=== PATIENT | male | born 1955 | race African-American/Black ===

== ENCOUNTER 2018-09-25 21:59 | Inpatient (IN) ==
[2018-09-25 23:48] LABS: INR 0.94
[2018-09-25 23:49] LABS: PTT 33.7 Seconds (22.3-41.8)
[2018-09-25 23:50] LABS: BASO# 0.05 X1000 (0.0-0.2); BASO% 0.2 % (0.0-0.8); EOS# 0.03 X1000 (0.0-0.7); EOS% 0.1 % (0.0-10.0); HEMATOCRIT 37.7 % (42.0-52.0); HEMOGLOBIN 11.9 g/dL (14.0-18.0); IMM GRAN# 0.05 X1000 (0.0-0.04); IMM GRAN% 0.2 % (0.0-0.5); LYMPH# 8.32 X1000 (1.2-3.4); LYMPH% 41.3 % (20.5-51.1); MCHC 31.6 g/dL (33-37); MCV 88.7 FL (81-99); MONO# 0.71 X1000 (0.11-0.59); MONO% 3.5 % (1.7-9.3); MPV 11.1 FL (7.4-10.4); NEUT# 10.98 X1000 (1.4-6.5); NEUT% 54.7 % (42.2-75.2); PLT 340 X1000 (130-400); RBC 4.25 XMIL (4.7-6.1); RDW 13.3 % (11.5-14.5); WBC 20.14 X1000 (4.8-10.8)
[2018-09-25 23:57] LABS: ALBUMIN 3.6 g/dL (3.5-5.0); CALCIUM 9.3 mg/dL (8.8-10.2); CREATININE 1.9 mg/dL (0.7-1.2); POTASSIUM 4.8 mmol/L (3.5-5.1); TOTAL BILIRUBIN 0.6 mg/dL (0.20-1.00); TOTAL PROTEIN 6.7 g/dL (6.3-8.3)
[2018-09-26] MEDS ORDERED: NS 1,000 ML IV ONE ×2 (00:29→01:41)
--- NOTE | 2018-09-26 00:30 | PROVIDER DOCUMENTATION ---
HPI-General Adult - General Chief Complaint: Return/Recheck Stated Complaint: NECK PAIN Time Seen by Provider: 09/25/18 22:41 Source: patient, family Allergies/Adverse Reactions: Patient Allergies Allergy/AdvReac Type Severity Reaction Status Date / Time No Known Allergies Allergy Verified 09/13/18 19:50 Home Medications: Home Medication List Medication Instructions Recorded Confirmed Last Taken Type ATORVAstatin [Lipitor] 40 mg PO DAILY 09/13/18 09/13/18 Unknown History Metformin [Glucophage] 500 mg PO BID CC 09/13/18 09/13/18 Unknown History Methocarbamol [Robaxin] 500 mg PO BID #20 tab 09/13/18 Unknown Rx - History of Present Illness -Gen Adult Nature of Presenting Problems: CC: "my neck hurts". Patient complains of non-traumatic neck since mid august. Has tried muscle relaxers but has not helped. He has been having generalized weakness for the last two days and is walking much slower. No fevers, headache, n/v, cp, dyspnea, abd pain. Location of Pain/Injury: reports: neck. denies: back Pain Radiation: reports: shoulder(s) Quality of Pain: reports: aching Severity: reports: moderate Onset/Duration: reports: other Timing: reports: still present Context/Activities at Onset: denies: none Modifying Factors: improves with: movement, palpation. worse with: nothing Associated Symptoms: reports: fatigue, weakness, trouble walking. denies: anxiety, chest pain, cough, diaphoresis, diarrhea, dizziness, EENT symptoms, headaches, joint pain, sinus congestion/drainage, nausea, shortness of breath, syncope, vomiting Similar Symptoms Previously?: Yes Recently seen or treated by another doctor?: Yes Review of Systems - Adult - REVIEW OF SYSTEMS - ADULT Constitutional: reports: see serjio CABRERA Eyes: reports: no symptoms reported Ears, Nose, Mouth & Throat: reports: no symptoms reported Cardiovascular: reports: no symptoms reported. denies: chest pain Respiratory: reports: no symptoms reported. denies: cough Gastrointestinal: reports: no symptoms reported Genitourinary: reports: no symptoms reported Musculoskeletal: reports: neck pain. denies: back pain Integumentary: reports: no symptoms reported. denies: rash Neurological: reports: no symptoms reported. denies: numbness, paresthesia Psychiatric: reports: no symptoms reported Endocrine: reports: no symptoms reported Hematologic/Lymphatic: reports: no symptoms reported Allergic/Immunologic: reports: no symptoms reported All Other Systems: Reviewed and Negative Past History - Adult - PAST MEDICAL HISTORY-ADULT Review of Records: reports: Old Records Reviewed, Nursing Assessment Review, Medications Reviewed, Social history reviewed & non-contributory. Major Childhood Illnesses: reports: denies history Cardiovascular: reports: HTN, hyperlipidemia Respiratory: reports: denies history Gastrointestinal: reports: denies history Obstetrical/Gynecological: reports: denies history Genitourinary: reports: denies history Musculoskeletal: reports: denies history Neurological: reports: denies history Endocrine/Immune: reports: Diabetes Other Conditions: reports: denies history - PRIOR SURGERIES/PROCEDURES Surgical/Procedure History: reports: other (foot sx ) - IMMUNIZATION STATUS Childhood Immunizations: See Nurse Assessment Flu Vaccine: See Nurse Assessment - FAMILY HISTORY Family History: reviewed, not pertinent - SOCIAL HISTORY Smoking: denies Substance Use: none/never Alcohol Use Frequency: never Living Situation: family Physical Exam-General - PHYSICAL EXAM-ADULT Initial Vital Signs Reviewed: Yes - CONSTITUTIONAL General Appearance: appears well, alert, no apparent distress - EYES Eyes: pink conjunctivae - HEAD, EARS, NOSE, MOUTH & THROAT HENMT: moist mucous membranes - NECK Neck: supple, other (paraspinal tenderness). negative: lymphadenopathy, meningismus - RESPIRATORY Respiratory: lungs clear, normal breath sounds - CARDIOVASCULAR Cardiovascular: normal peripheral pulses, regular rate, rhythm - GASTROINTESTINAL (ABDOMEN) Abdominal Exam: non tender, soft - LYMPHATIC Lymphatic: no adenopathy - MUSCULOSKELETAL Back Exam: no CVA tenderness Extremity: other (slow to stand, ambulate) Peripheral Pulses: radial (R): 2+, radial (L): 2+ - SKIN Integumentary: normal color, normal turgor, warm/dry - NEUROLOGIC Neurologic: grossly normal, no motor/sensory deficits - PSYCHIATRIC Psych/Mental Status: normal thought content, oriented x 3 Progress - PLAN OF CARE/RESULTS Progress/Plan/Lab Results: Vital Signs - 8 hr 09/25/18 22:06 Temperature 98 F Pulse Rate 108 H Respiratory Rate 18 Blood Pressure 100/48 O2 Sat by Pulse Oximetry 96 Laboratory Results - last 24 hr 09/25/18 09/25/18 09/25/18 23:08 23:08 23:08 WBC 20.14 H RBC 4.25 L Hgb 11.9 L Hct 37.7 L MCV 88.7 MCH 28.0 MCHC 31.6 L RDW Std Deviation 13.3 Plt Count 340 MPV 11.1 H Immature Gran % (Auto) 0.2 Neut % (Auto) 54.7 Lymph % (Auto) 41.3 Desha % (Auto) 3.5 Eos % (Auto) 0.1 Baso % (Auto) 0.2 Immature Gran # (Auto) 0.05 H Neut # (Auto) 10.98 H Lymph # (Auto) 8.32 H Desha # (Auto) 0.71 H Eos # (Auto) 0.03 Baso # (Auto) 0.05 PT 13.0 INR 0.94 PTT (Actin FS) 33.7 Sodium 139 Potassium 4.8 Chloride 99 Carbon Dioxide 24 L Anion Gap 16 BUN 24 H Creatinine 1.9 H Estimated GFR/1.73 m2 36 BUN/Creatinine Ratio 13 Glucose 273 H Calculated Osmolality 291 Calcium 9.3 Total Bilirubin 0.60 AST 9 L ALT 10 Alkaline Phosphatase 91 Creatine Kinase 44 Troponin T Total Protein 6.7 Albumin 3.6 Globulin 3.0 Albumin/Globulin Ratio 1.0 09/25/18 23:08 WBC RBC Hgb Hct MCV MCH MCHC RDW Std Deviation Plt Count MPV Immature Gran % (Auto) Neut % (Auto) Lymph % (Auto) Desha % (Auto) Eos % (Auto) Baso % (Auto) Immature Gran # (Auto) Neut # (Auto) Lymph # (Auto) Desha # (Auto) Eos # (Auto) Baso # (Auto) PT INR PTT (Actin FS) Sodium Potassium Chloride Carbon Dioxide Anion Gap BUN Creatinine Estimated GFR/1.73 m2 BUN/Creatinine Ratio Glucose Calculated Osmolality Calcium Total Bilirubin AST ALT Alkaline Phosphatase Creatine Kinase Troponin T < 0.010 Total Protein Albumin Globulin Albumin/Globulin Ratio Orders Category Date Time Status Saline Loc NOW Care 09/25/18 22:51 Active CHEST-2 VIEWS [RAD] Stat Exams 09/25/18 22:[address] HEAD/C-SPINE W/O CONTRAST [CT] Stat Exams 09/25/18 22:50 Taken CBC WITH ELECTRONIC DIFF [HEME] Stat Lab 09/25/18 23:08 Completed CBC WITH NO DIFF [HEME] Stat Lab 09/26/18 00:29 Ordered CK PROFILE [SP CHEM] Stat Lab 09/25/18 23:08 Completed COMPREHENSIVE METABOLIC PANEL [CHEM] Stat Lab 09/25/18 23:08 Completed PROTIME WITH INR [COAG] Stat Lab 09/25/18 23:08 Completed PTT [COAG] Stat Lab 09/25/18 23:08 Completed TROPONIN T Stat Lab 09/25/18 23:08 Completed UA NIMS W/REFLEX CULT PL [URINALYSIS] Stat Lab 09/25/18 22:50 Uncollected 0.9% Sodium Chloride Inj [Ns] 1,000 ml Med 09/26/18 00:29 Active IV 999 mls/hr CP/SOB/Palp >45 yrs of Age Stat Oth 09/25/18 22:50 Ordered EKG [EKG] Stat Ther 09/25/18 22:51 Ordered Result Diagrams: 09/26/18 01:03 09/25/18 23:08 - REASSESSMENT Reassessment #1 Time Reassessed: 00:30 Status: other (repeat cbc per dr. barnes.) Reassessment #2 Time Reassessed: 01:30 Status: unchanged (patient seen and examined by Dr. Barnes.) - XRAY 1 XRAY Study: Chest Comparison with other Films: no changes (NAF) - CT/MRI 1 CT Study: Cervical Spine, Head Impression: See EMR Report (head: NAF, ?mastoiditis C-spine: likely chronic mild c5 anterior compression fx) - CONSULTS/PCP/HOSPITALIST Notification #1 *Consult/PCP/Hospitalist*: Dr. Quintero, hospitalist Time Discussed: 03:00 Consult Disposition: Admit - CHANGE OF SHIFT REPORT (ED Provider) Report Given and Care Transferred to:: Dr. Barnes Time of Transfer: 02:04 Items Pending: Labs, Physician Consult/Arrival Departure - Departure Date of Disposition Decision: 09/26/18 Time of Disposition Decision: 03:01 DIAGNOSIS: Acute neck pain, Renal insufficiency, Hyperglycemia Leukocytosis Qualifiers: Leukocytosis type: unspecified Qualified Code(s): D72.829 - Elevated white blood cell count, unspecified Disposition: ADMITTED INPATIENT 09 Certified Medical Emergency: Emergent Condition: Fair - Critical Care Note This patient required my direct & personal management of CC.: No Attestation - Physician/ GABBI Attestation Patient care was provided by Advanced Practice Provider:: Yes Advanced Practice Provider:: Mir,Lloyd D Advanced Practice Provider documentation review:: The Mid-level provider documentation, treatment plan and medical decision making was reviewed by the physician who agrees with all treatment and medical decision making by the MLP. The physician spent face to face time with patient:: Yes Advanced Practice Provider documentation review:: Supervising physician onsite and consulted in the evaluation and care of this patient. The physician did have a face to face encounter with the patient.
[2018-09-26 01:19] LABS: HEMATOCRIT 36.4 % (42.0-52.0); HEMOGLOBIN 11.6 g/dL (14.0-18.0); MCH 28.4 PG (27-31); MCHC 31.9 g/dL (33-37); RBC 4.09 XMIL (4.7-6.1); RDW 13.4 % (11.5-14.5); WBC 23.79 X1000 (4.8-10.8)
[2018-09-26] MEDS ORDERED: ZOSYN 3.375 GM in NS 50 ML IV ONE (01:30)
[2018-09-26] MEDS ORDERED: NS 500 ML IV ONE (01:42)
[2018-09-26 02:14] LABS: BILIRUBIN URINE NEGATIVE (NEGATIVE); BLOOD URINE NEGATIVE (NEGATIVE); CLARITY CLEAR (CLEAR); COLOR YELLOW; KETONE URINE 1+(Small) mg/dL (NEGATIVE); LEUKOCYTES URINE NEGATIVE (NEGATIVE); NITRITE URINE NEGATIVE (NEGATIVE); PROTEIN URINE 1+(30 mg/dL) mg/dL (NEGATIVE); UROBILINOGEN URINE NORMAL
[2018-09-26 02:21] LABS: URINE WBC <10 /HPF (<10)
[2018-09-26 02:22] LABS: URINE BACTERIA 4+ /HFP; URINE CRYSTAL CA OXALATE PRESENT /HPF; URINE EPITHELIAL CELLS <10 /HPF (<10); URINE SOURCE CLEAN CATCH
[2018-09-26] MEDS ORDERED: NORCO-5 PO ONE (02:29)
[2018-09-26] MEDS ORDERED: VANCOMYCIN 1 GM/NS 1 GM/250 ML IVPB IV ONE (03:01)
[2018-09-26] MEDS ORDERED: ZOFRAN IV PRN (03:02)
[2018-09-26] MEDS ORDERED: MORPHINE IV PRN (03:02)
[2018-09-26] MEDS ORDERED: PNEUMOVAX 23 IM ONE (05:34)
--- NOTE | 2018-09-26 05:56 | Diag Imaging Result Doc PS360 ---
EXAM: CHEST-2 VIEWS HISTORY: weakness TECHNIQUE: Chest two views COMPARISON: 03/04/2013 FINDINGS: The lungs are well expanded. The heart is not enlarged. The vessels are not distended. There are no infiltrates. No pleural effusions. Mild scoliosis. IMPRESSION: No acute abnormality. Electronically signed by Grady Richey 09/26/2018 5:54 AM
--- NOTE | 2018-09-26 08:39 | Diag Imaging Result Doc PS360 ---
EXAM: CT HEAD/C-SPINE W/O CONTRAST HISTORY: headache, neck pain, unable to ambulate TECHNIQUE: Routine noncontrasted CT scan of the brain and cervical spine as per standard protocol. Dose reduction technique. COMPARISON: None. FINDINGS: Preliminary interpretation was given by [facility] teleradiology. Head: There are no extra-axial collections. There is no evidence for acute hemorrhage. There is no midline shift or mass effect. There is no hydrocephalus. There is diffuse cerebral atrophy. There is patchy hypodensity throughout the deep white matter which is nonspecific in appearance but likely related to microvascular disease. There is a probable old right lacunar infarct. The calvarium is intact. Cervical Spine: There is no prevertebral soft tissue swelling. There is multilevel degenerative disc disease with osteophyte formation and neural foraminal encroachment most marked at C3-C7. There is mild anterior compression of C5 of undetermined age. No canal stenosis. No free or retropulsed fragments. No subluxation. IMPRESSION: Atrophy and microvascular disease. Mild anterior compression fracture C5 of undetermined age. Multilevel cervical spondylosis. This exam was performed using automated exposure control, adjustment of mA or kV according to patient size, and/or use of iterative reconstruction technique. Electronically signed by Jenny Velazco 09/26/2018 8:37 AM
[2018-09-26] MEDS ORDERED: VANCOMYCIN IV PER PHARMACY MISC SCH (17:15)
[2018-09-26] MEDS ORDERED: VANCOMYCIN 1,600 MG in NS 250 ML IV SCH ×4 (18:00)
[2018-09-26] MEDS: ZOSYN 3.375 GM in NS 50 ML IV SCH ×2 (18:05→23:35)
[2018-09-26] MEDS ORDERED: NS 1,000 ML IV SCH (20:00)
[2018-09-26] MEDS: PRAVACHOL PO SCH (20:38)
--- NOTE | 2018-09-26 21:14 | HISTORY AND PHYSICAL ---
CHIEF COMPLAINT: Neck pain. HISTORY OF PRESENT ILLNESS: This is a 63-year-old gentleman who presented to the emergency room complaining of neck pain since mid August. He describes this as an achy type pain that goes down the back of his head, to his neck and into his bilateral shoulders. He states it increases with movement, palpation. Rest does help. He has also noted a headache along with some fatigue and weakness over the past 1 to 2 weeks. He denied any syncope or dizziness, any chest pain, palpitations. PAST MEDICAL HISTORY: Diabetes mellitus, hypertension, hyperlipidemia. PAST SURGICAL HISTORY: Foot surgery. SOCIAL HISTORY: He denies alcohol, tobacco or illicit drug use. ALLERGIES: No known drug allergies. HOME MEDICATIONS: A list will be obtained by the nursing staff and once verified, they will be reviewed and started as appropriate. REVIEW OF SYSTEMS: Discussed with patient with pertinent positives stated in the HPI. He denied any syncope, dizziness, any change in vision, any fevers, chills, recent weight loss or weight gain, any shortness of breath, cough, PND, orthopnea, any difficulty swallowing , any numbness or tingling to his extremities, any nausea, vomiting, diarrhea, constipation, black or bloody vomitus or stool, hematuria, dysuria, frequency, urgency. PHYSICAL EXAMINATION: GENERAL: This is a 63-year-old gentleman who is lying in bed in no distress. VITAL SIGNS: Blood pressure is 138/64, with heart rate of 88, respirations 20, temperature 98.3, room air sats 96-98%. EYES: Pupils are equal, round, react to light. EOMs are intact. Sclerae are anicteric. HEENT: Head is normocephalic, atraumatic. Mucous membranes are moist. NECK: Supple, with trachea midline. He does have some tenderness to his bilateral shoulders. NEUROLOGIC: He is alert and oriented x 3 with cranial nerves 2-12 grossly intact. He has muscle strength is 5/5 x 4 extremities. SKIN: Warm and dry. No rashes or lesions noted. LABS: WBC is 20.1, with hemoglobin 11.9, hematocrit 37.7 and platelets of 340, 000. Sodium is 139, potassium 4.8, BUN 24, creatinine 1.9 with a glucose of 273. Blood cultures and urine cultures are pending. ASSESSMENT AND PLAN: 1. Neck pain. CT of the head and C-spine without contrast revealed right mastoid effusion with no fracture appreciated, atrophy and microvascular disease. A mild anterior compression fracture C5 of undetermined age, with multiple cervical spondylosis. We will continue with pain medications as the patient has had muscle relaxers with no relief. We will not reorder these. 2. Leukocytosis. The patient is noted to have an ulcerated area to his right heel. Wound culture has been obtained. In reviewing his past records, he was followed by Dr. Lewis in the [facility]ound [facility] intermittently from 2012 to it looks like 2016 for this ulcer of the right heel. At that time back in 2012 he had a positive culture strep group B. There is no record of osteomyelitis. We will start antibiotic coverage of vancomycin and Zosyn. We will x-ray his right foot and will consult the Wound Care. 3. Acute kidney injury. We will hold any renal toxic medications and renal dose his medications. Give IV hydration and re-draw labs in the morning. 4. Diabetes mellitus. He will be placed on pattern blood glucose with sliding scale insulin. 5. Hypertension. We will identify his home medications and continue these as appropriate. 6. Repeat a CBC, CMP, magnesium in the morning. 7. Further treatments pending hospital course. Dictated by SHANI Burris for Royce Stubbs MD This chart was documented by, SHANI Burris and accurately reflects the services performed, treatment plan and medical decisions as attested by the providers signature Royce Stubbs MD. cc: SHANI Burris MD [facility]
--- NOTE | 2018-09-26 21:15 | Diag Imaging Result Doc PS360 ---
FOOT COMPLETE RIGHT - 09/26/2018 INDICATION: persistent diabetic ulcer, pain on ambulation TECHNIQUE: Three views COMPARISON: 03/06/2016 FINDINGS: There is severe pes planus. Since prior, there has been erosion of the subtalar joints by compression from the talus. No acute fracture. There is severe degeneration throughout the mid tarsal joints. No bony erosions or soft tissue gas. There is some degeneration at the tibiotalar joint. IMPRESSION: Chronic progressive degenerative changes. Electronically signed by Jagjit Nava 09/26/2018 9:13 PM
--- NOTE | 2018-09-27 04:00 | HISTORY AND PHYSICAL ---
ADDENDUM: Patient seen and examined by myself. Full note dictated and discussed with nurse practitioner. Patient presented to the hospital, initially complaining that his neck was hurting. States that he fell in August, was seen in the ER. X-ray does show a compression fracture. The patient was noted to have a white count of 23,000. We will admit him to the hospital, place on antibiotics, attempt to determine the reason for his elevated white count. cc: Royce Stubbs MD
[2018-09-27] MEDS: MORPHINE IV PRN (04:11)
[2018-09-27] MEDS: ZOSYN 3.375 GM in NS 50 ML IV SCH ×5 (04:11→23:21)
[2018-09-27 07:20] LABS: HEMATOCRIT 32.5 % (42.0-52.0); MCH 27.5 PG (27-31); MCHC 30.8 g/dL (33-37); MCV 89.3 FL (81-99); MPV 10.8 FL (7.4-10.4); RBC 3.64 XMIL (4.7-6.1); RDW 13.3 % (11.5-14.5); WBC 19.4 X1000 (4.8-10.8)
[2018-09-27 07:43] LABS: AGAP 11; ALBUMIN 3.1 g/dL (3.5-5.0); ALKALINE PHOSPHATASE 76 U/L (32-122); BUN 11 mg/dL (8-22); CALCIUM 8.6 mg/dL (8.8-10.2); CHLORIDE 105 mmol/L (98-107); COSMO 282; CREATININE 1.1 mg/dL (0.7-1.2); ESTIMATED GFR > 60; GLUCOSE 131 mg/dL (70-104); GOT 10 U/L (10-34); GPT 7 U/L (10-44); MAGNESIUM 1.6 mg/dL (1.5-2.7); POTASSIUM 3.8 mmol/L (3.5-5.1); SODIUM 141 mmol/L (136-145); TCO2 25 mmol/L (25-35); TOTAL PROTEIN 6.5 g/dL (6.3-8.3)
[2018-09-27] MEDS ORDERED: DILTIAZEM HCL 300 MG PO SCH (09:00)
[2018-09-27] MEDS: IMDUR PO SCH (09:12)
[2018-09-27] MEDS: GLUCOPHAGE PO SCH ×2 (09:13→17:10)
[2018-09-27] MEDS: CARDIZEM CD PO SCH ×2 (09:13)
[2018-09-27] MEDS: APRESOLINE PO SCH ×3 (09:13→21:28)
[2018-09-27] MEDS: COZAAR PO SCH (09:13)
[2018-09-27] MEDS ORDERED: VANCOMYCIN 1,600 MG in NS 250 ML IV SCH (18:00)
[2018-09-27] MEDS: PRAVACHOL PO SCH (21:28)
[2018-09-27] MEDS: ROBAXIN PO PRN (21:28)
--- NOTE | 2018-09-28 03:08 | PROGRESS NOTE ---
DATE: 09/27/2018 SUBJECTIVE: The patient has no new complaints. It is very difficult to stay on focus and to get him to answer questions. OBJECTIVE: Vital Signs: Temperature 97.6 degrees, pulse 96, respiratory rate 20, BP 177/84. General: The patient is awake, alert, currently in no respiratory distress, lying in the bed. HEENT: Normocephalic and atraumatic. Neck: Supple. CARDIOVASCULAR: Regular rate. Chest: Clear. Abdomen: Soft. Extremities: Moves all extremities. ASSESSMENT: 1. Neck pain. 2. Leukocytosis. 3. Cellulitis foot, gram-negative rods growing culture. 4. Diabetes. 5. Hypertension. PLAN: The patient's leukocytosis is improving slightly. His creatinine has improved to 1.1. Anemia is stable. We will continue vancomycin and Zosyn until final culture and sensitivity. cc: Royce Stubbs MD
[2018-09-28] MEDS: ZOSYN 3.375 GM in NS 50 ML IV SCH (04:53)
[2018-09-28 07:19] LABS: HEMATOCRIT 29.9 % (42.0-52.0); MCHC 30.1 g/dL (33-37); MCV 89.8 FL (81-99); MPV 10.8 FL (7.4-10.4); RBC 3.33 XMIL (4.7-6.1); RDW 13.3 % (11.5-14.5); WBC 19.22 X1000 (4.8-10.8)
[2018-09-28 07:45] LABS: AGAP 13; ALKALINE PHOSPHATASE 70 U/L (32-122); BUN 12 mg/dL (8-22); CALCIUM 8.8 mg/dL (8.8-10.2); CHLORIDE 108 mmol/L (98-107); COSMO 295; CREATININE 1.2 mg/dL (0.7-1.2); ESTIMATED GFR > 60; GLUCOSE 189 mg/dL (70-104); GOT 8 U/L (10-34); GPT 8 U/L (10-44); MAGNESIUM 1.6 mg/dL (1.5-2.7); POTASSIUM 4.2 mmol/L (3.5-5.1); SODIUM 146 mmol/L (136-145); TCO2 25 mmol/L (25-35); TOTAL PROTEIN 5.7 g/dL (6.3-8.3)
[2018-09-28] MEDS: GLUCOPHAGE PO SCH ×2 (08:22→17:11)
[2018-09-28] MEDS: COZAAR PO SCH (08:22)
[2018-09-28] MEDS: IMDUR PO SCH (08:22)
[2018-09-28] MEDS: CARDIZEM CD PO SCH ×2 (08:23)
[2018-09-28] MEDS: APRESOLINE PO SCH ×3 (08:23→21:34)
[2018-09-28] MEDS ORDERED: MILK OF MAGNESIA PO PRN (08:33)
[2018-09-28] MEDS: LEVAQUIN PO SCH (12:22)
[2018-09-28] MEDS: PRAVACHOL PO SCH (21:34)
[2018-09-28] MEDS: MORPHINE IV PRN (21:34)
--- NOTE | 2018-09-28 23:18 | PROGRESS NOTE ---
DATE: 09/28/2018 SUBJECTIVE: Patient has no new complaints. States that he is feeling okay. His neck pain is improving. States that overall he is feeling better, but still having pain in his left lower extremity. PHYSICAL EXAMINATION: Vital Signs: Temperature 99 degrees with a T-max of 100 degrees, pulse 97, respiratory 18, BP 130/83. General: Patient is awake, alert, currently in no respiratory distress. He is lying in the bed. HEENT: Normocephalic. Neck: Supple. CARDIOVASCULAR: Regular rate. Chest: Clear. Abdomen: Soft. Extremities: Moves all extremities. Neurologic: No focal changes. ASSESSMENT: 1. Neck pain with a healing old fracture. 2. Leukocytosis. 3. Acute kidney injury, resolved. 4. Right foot injury, currently growing gram-negative rods. PLAN: We will continue patient in the hospital. Continue antibiotics until his wound culture has fully resulted and then we will adjust antibiotics. Hopefully can discharge home tomorrow. cc: Royce Stubbs MD
[2018-09-29] MEDS: GLUCOPHAGE PO SCH ×2 (07:57→18:29)
[2018-09-29] MEDS: CARDIZEM CD PO SCH ×4 (07:58→08:05)
[2018-09-29] MEDS: IMDUR PO SCH ×2 (07:58→08:05)
[2018-09-29] MEDS: APRESOLINE PO SCH ×4 (07:58→20:40)
[2018-09-29] MEDS: LEVAQUIN PO SCH ×2 (07:58→08:05)
[2018-09-29] MEDS: COZAAR PO SCH ×2 (07:58→08:05)
[2018-09-29] MEDS: ROBAXIN PO PRN (20:40)
[2018-09-29] MEDS: PRAVACHOL PO SCH (20:40)
--- NOTE | 2018-09-30 03:46 | PROGRESS NOTE ---
DATE: 09/29/2018 SUBJECTIVE: Patient overall notes that he is feeling better. He is having less cough, congestion, less shortness of breath. Denies any fevers or chills. PHYSICAL EXAMINATION: Vital Signs: Temperature 98.6 degrees, pulse 107, respiratory 20, BP 120/59. General: Patient is an obese male who is currently in no respiratory distress. ASSESSMENT: 1. Neck pain, improved. 2. Leukocytosis, improved. 3. Citrobacter cellulitis in his wound. PLAN: We will continue patient in the hospital tonight. Continue to follow. Hopefully home over the next 1 or 2 days. cc: Royce Stubbs MD
[2018-09-30 08:02] VITALS: BP 156/72
[2018-09-30] MEDS: COZAAR PO SCH (08:07)
[2018-09-30] MEDS: IMDUR PO SCH (08:07)
[2018-09-30] MEDS: CARDIZEM CD PO SCH ×2 (08:07→08:08)
[2018-09-30] MEDS: GLUCOPHAGE PO SCH (08:07)
[2018-09-30] MEDS: APRESOLINE PO SCH (08:08)
[2018-09-30] MEDS: LEVAQUIN PO SCH (08:09)
--- NOTE | 2018-09-30 15:17 | DISCHARGE SUMMARY ---
ADMISSION DATE: 09/26/2018 DISCHARGE DATE: 09/30/2018 DIAGNOSES: 1. Neck pain, improved, although this is chronic. 2. Acute kidney injury, resolved. 3. Diabetes mellitus. 4. Hypertension. DIAGNOSTICS: 1. Chest x-ray revealed lungs are well expanded. Heart is not enlarged. Vessels are not distended. There are no infiltrates. No pleural effusions. Mild scoliosis with no acute abnormality. 2. CT of the head and C-spine without contrast. The C-spine reveals no prevertebral soft tissue swelling. There is multilevel degenerative disk disease with osteophyte formation and neuroforaminal encroachment most marked at C3-C7. There is mild anterior compression of C5 of undetermined age. No canal stenosis. No free or retropulsed fragments. No subluxation. Head revealed no extra-axial collections. There is no evidence for acute hemorrhage. There is no midline shift or mass effect. There is no hydrocephalus. There is diffuse cerebral atrophy. There is patchy hypodensity throughout the deep white matter which is nonspecific in appearance but likely related to microvascular disease. There is a probable old right lacunar infarct. 3. X-ray right foot reveals chronic progressive degenerative changes. 4. Microbiology. Blood cultures x2 revealed no growth after 48 hours. 5. Urine culture revealed no growth. 6. Right foot wound culture revealed Citrobacter Koseri. HOSPITAL COURSE: Mr. Garcia presents to the emergency room complaining of neck pain that he has been present since mid August. He denied any injury. He did state that he has had chronic neck pain for many years, although this did wax and wane. It had just been more persistent since August. He did state that this pain increased with movement or palpation, rest helps. A CT of the head was negative. Mr. Garcia stated that his pain started after a fall in mid August. He did present to the emergency room on the 13 of September with neck pain. He was diagnosed with cervicalgia and given prescription for muscle relaxer. Of note, Mr. Garcia complains of the pain in the paraspinous muscles and palpation of these muscles did reproduce this pain. He was found to have a right foot ulceration that was draining some purulent drainage. Culture revealed Citrobacter koseri that was Levaquin sensitive. He was evaluated by Wound Care with recommendation for dressing changes. At 1st admission the patient stated that this was new, but in reviewing his chart he was seen in February, for a right heel ulcer and had been in the wound clinic from it looks like February to July,. We did discuss with the patient being seen and being evaluated by our wound clinic, which he denied. We did discuss this with the patient and recommended that he follow up with our wound clinic on discharge to which he refused. He did agree to home health and home wound care which was arranged by social Work. He received Robaxin on the night of the and the night of the , and he did state that this helped his neck pain. He requested no other medications. DISCHARGE PHYSICAL EXAMINATION: Cardiovascular: Regular rate and rhythm. S1 and S2 appreciated. Pulmonary: Breath sounds are clear with no increased work of breathing noted. Gastrointestinal: Abdomen is soft, nontender, nondistended with bowel sounds in all 4 quadrants. Skin: Is warm and dry. He does have a dressing intact to his right heel. DISCHARGE MEDICATIONS: 1. Pravachol 40 mg p.o. at bedtime. 2. Cardizem-LA 300 mg p.o. daily. 3. Lasix 40 mg p.o. daily. 4. Glimepiride 4 mg p.o. daily. 5. Apresoline 25 mg p.o. t.i.d. 6. Isosorbide mononitrate ER 30 mg p.o. daily. 7. Cozaar 100 mg p.o. daily. 8. Metformin 1000 mg p.o. b.i.d. 9. Robaxin 500 mg p.o. b.i.d. 10. Klor-Con 10 ,10 mEq daily. 11. Levaquin 500 mg p.o. daily for 5 days. FOLLOW-UP: 1. The patient will receive home health as well as home wound care from [facility]. 2. He needs to schedule a follow-up appointment with his PCP Dr. Yossi Pablo. He has been encouraged to call Wednesday to schedule this. 3. He has been instructed to call or return to the ER for any syncope, dizziness, chest pain, palpitations, shortness of breath, cough, temperature greater than 101, any chills, any black or bloody vomitus or stools, or for any questions or concerns that he may have. He is being discharged home in stable condition with family members. TIME SPENT: This is a greater than 30 minute discharge. Dictated by Samantha J. Slaten, [employer] for Royce Stubbs MD This chart was documented by, SHANI Burris and accurately reflects the services performed, treatment plan and medical decisions as attested by the providers signature Royce Stubbs MD. cc: SHANI Burris MD
--- NOTE | 2018-10-01 06:57 | DISCHARGE SUMMARY ---
ADMISSION DATE: 09/26/2018 DISCHARGE DATE: 09/30/2018 ADDENDUM: Patient seen and examined. Currently is awake, alert. He is in no distress. He feels better. PLAN: We will discharge him home. We will continue home health. Please see full note. cc: Royce Stubbs MD
== END 2018-09-30 12:50 | disposition home health service (06) | DRG 603 ==
LOC: P.MEDSURG 21:59 → P.ED 21:59 → SUATTDRO 09-26 03:14 → OBSVTOIN 09-26 03:14
PROVIDERS: ATTEND Family Medicine
CPT/HCPCS: 70450; 71020; 71046; 72125; 73630; 80053; 81001; 82550; 82948; 83605; 83735; 84484; 85025; 85027; 85610; 85730; 87040; 87070; 87077; 87088; 87186; 93005; 94761; 96361; 96365; 96375; 99285; A9270; J2270; J2543; J3370; J7030; J7050; XXXXX

== ENCOUNTER 2019-04-28 01:18 | Inpatient (IN) ==
[2019-04-28 02:12] LABS: ALB/GLOB RATIO 1.6; ALBUMIN 4.6 g/dL (3.5-5.0); CALCIUM 10.2 mg/dL (8.8-10.2); CREATININE 2.5 mg/dL (0.7-1.2); POTASSIUM 4.8 mmol/L (3.5-5.1); TOTAL BILIRUBIN 0.79 mg/dL (0.20-1.00); TOTAL PROTEIN 7.5 g/dL (6.3-8.3)
[2019-04-28 02:37] LABS: BASO# 0.11 X1000 (0.0-0.2); BASO% 0.3 % (0.0-0.8); EOS# 0.05 X1000 (0.0-0.7); EOS% 0.1 % (0.0-10.0); HEMATOCRIT 33.4 % (42.0-52.0); HEMOGLOBIN 10.8 g/dL (14.0-18.0); MCH 28.2 PG (27-31); MCHC 32.3 g/dL (33-37); MCV 87.2 FL (81-99); PLT 258 X1000 (130-400); RBC 3.83 XMIL (4.7-6.1); RDW 13.1 % (11.5-14.5); WBC 37.08 X1000 (4.8-10.8)
--- NOTE | 2019-04-28 02:42 | EKG Report ---
Test Performed on : 04/28/2019 01:58:51 AM Test Reason : vomiting Blood Pressure : / mmHG Vent. Rate : 088 BPM Atrial Rate : 088 BPM P-R Int : 160 ms QRS Dur : 094 ms QT Int : 396 ms P-R-T Axes : 079 054 084 degrees QTc Int : 479 ms Sinus rhythm. with frequent and consecutive premature ventricular complexes. Possible Left atrial enlargement Septal infarct , age undetermined Abnormal ECG No previous ECGs available Unconfirmed Result
[2019-04-28 03:13] LABS: URINE SOURCE CLEAN CATCH
[2019-04-28 03:17] LABS: BILIRUBIN URINE NEGATIVE (NEGATIVE); BLOOD URINE NEGATIVE (NEGATIVE); COLOR YELLOW; GLUCOSE URINE 70 mg/dL (NEGATIVE); KETONE URINE NEGATIVE (NEGATIVE); LEUKOCYTES URINE NEGATIVE (NEGATIVE); NITRITE URINE NEGATIVE (NEGATIVE); PROTEIN URINE NEGATIVE (NEGATIVE); SP GRAVITY URINE 1.012; TURBIDITY URINE CLEAR (CLEAR); UROBILINOGEN URINE NORMAL (NORMAL)
[2019-04-28 03:18] LABS: UR EPITHELIAL CELLS <10 /HPF (<10); URINE BACTERIA NEGATIVE /HPF; URINE RBC <10 /HPF (<10); URINE WBC <10 /HPF (<10)
[2019-04-28 03:31] LABS: LYMPHS 63 % (21-51); MONO 7 % (1-9); SEGS 30 % (42-75)
--- NOTE | 2019-04-28 03:36 | PROVIDER DOCUMENTATION ---
This chart was entered by Manuela Kasper Scribe, acting as scribe for Tlaon Velasquez MD. HPI-General Adult - General Chief Complaint: Low Blood Sugar Stated Complaint: Poss. Stroke Time Seen by Provider: 04/28/19 01:20 Source: patient Allergies/Adverse Reactions: Patient Allergies Allergy/AdvReac Type Severity Reaction Status Date / Time No Known Allergies Allergy Verified 09/13/18 19:50 Home Medications: Home Medication List Medication Instructions Recorded Confirmed Last Taken Type Metformin [Glucophage] 1,000 mg PO BID CC 09/13/18 09/26/18 Unknown History Diltiazem HCl [Cardizem LA] 300 mg PO DAILY 09/26/18 09/26/18 Unknown History Furosemide [Lasix] 40 mg PO DAILY 09/26/18 09/26/18 Unknown History Glimepiride 4 mg PO DAILY 09/26/18 09/26/18 Unknown History Hydralazine [Apresoline] 25 mg PO TID 09/26/18 09/26/18 Unknown History Isosorbide Mononitrate E.r. [Imdur] 30 mg PO DAILY 09/26/18 09/26/18 Unknown History Losartan [Cozaar] 100 mg PO DAILY 09/26/18 09/26/18 Unknown History Methocarbamol [Robaxin] 500 mg PO BID PRN 09/26/18 09/26/18 Unknown History PRAVAstatin [Pravachol] 40 mg PO QHS 09/26/18 09/26/18 Unknown History Potassium Chloride [Klor-Con 10] 10 meq PO DAILY 09/26/18 09/26/18 Unknown Hist ory Levofloxacin [Levaquin] 500 mg PO DAILY #5 tab 09/30/18 Unknown Rx - History of Present Illness -Gen Adult Nature of Presenting Problems: 64 yom arrives via ems for rt sided weakness, rt sided facial droop and fsbs of 35. pt fsbs got up to 38 and when checked again dropped to 34. pt has hx of cva and dm. pt is on anticoagulants. pt has cast on rt foot. pt sts numb rt arm and has never happened before. pt fsbs in er is 34, given D-50 upon arrival, pt became more repsonsive immediately. Location of Pain/Injury: reports: face (rt facial droop), upper extremity (rt arm numbness) Pain Radiation: reports: no radiation Severity: reports: mild Onset/Duration: reports: just prior to arrival Timing: reports: still present - Diabetes Related Context Context: reports: low blood sugar Review of Systems - Adult - REVIEW OF SYSTEMS - ADULT Constitutional: reports: no symptoms reported Eyes: reports: no symptoms reported Ears, Nose, Mouth & Throat: reports: no symptoms reported Cardiovascular: reports: no symptoms reported Respiratory: reports: no symptoms reported Gastrointestinal: reports: no symptoms reported Genitourinary: reports: no symptoms reported Musculoskeletal: reports: no symptoms reported Integumentary: reports: no symptoms reported Neurological: reports: see HPI, numbness (rt arm), other (rt sided facial droop) . denies: loss of balance, syncope, tremors Psychiatric: reports: no symptoms reported Endocrine: reports: see HPI, other (low fsbs). denies: change in skin pigment, excessive sweating, goiter, increased thirst, polyuria Hematologic/Lymphatic: reports: no symptoms reported Allergic/Immunologic: reports: no symptoms reported All Other Systems: Reviewed and Negative Past History - Adult - PAST MEDICAL HISTORY-ADULT Review of Records: reports: Old Records Reviewed, Nursing Assessment Review, Medications Reviewed, Social history reviewed & non-contributory. Major Childhood Illnesses: reports: denies history Cardiovascular: reports: HTN, hyperlipidemia Respiratory: reports: denies history Gastrointestinal: reports: denies history Obstetrical/Gynecological: reports: denies history Genitourinary: reports: denies history Musculoskeletal: reports: denies history Neurological: reports: denies history Endocrine/Immune: reports: Diabetes Other Conditions: reports: denies history - PRIOR SURGERIES/PROCEDURES Surgical/Procedure History: reports: other (foot sx ) - IMMUNIZATION STATUS Childhood Immunizations: See Nurse Assessment Flu Vaccine: See Nurse Assessment - FAMILY HISTORY Family History: reviewed, not pertinent - SOCIAL HISTORY Smoking: non-smoker Substance Use: none/never Physical Exam-General - PHYSICAL EXAM-ADULT Initial Vital Signs Reviewed: Yes - CONSTITUTIONAL General Appearance: alert, mild distress, slow to respond (prior to D-50). negative: obtunded, combative - EYES Eyes: PERRL/EOMI, pink conjunctivae - HEAD, EARS, NOSE, MOUTH & THROAT HENMT: normocephalic/atraumatic, moist mucous membranes, normal ENT inspection - NECK Neck: non-tender, full range of motion, supple, normal inspection - RESPIRATORY Respiratory: chest non-tender, lungs clear, normal breath sounds - CARDIOVASCULAR Cardiovascular: normal peripheral pulses, regular rate, rhythm - GASTROINTESTINAL (ABDOMEN) Abdominal Exam: normal bowel sounds, non tender, soft, other (pt has excess skin on abd). negative: guarding, rigid, rebound, tenderness - LYMPHATIC Lymphatic: no adenopathy - MUSCULOSKELETAL Back Exam: normal inspection, no CVA tenderness, no vertebral tenderness Extremity: normal range of motion, non-tender, normal inspection, other (sensory, motor intact bilat UE and LE after D-50. pt has boot on). negative: deformity, erythema, inflammation Peripheral Pulses: radial (R): 2+, radial (L): 2+ - SKIN Integumentary: normal color, normal turgor, warm/dry - NEUROLOGIC Neurologic: engraver automatic II-XII nml as tested, grossly normal, no motor/sensory deficits, facial droop (minimal rt sided, resolved after D-50), other (sensory, motor intact bilat UE and LE after D-50.). negative: aphasia, EOM palsy, focal weakne ss - PSYCHIATRIC Psych/Mental Status: normal mood/affect, normal thought content, normal thought process, oriented x 3 Progress - PLAN OF CARE/RESULTS Progress/Plan/Lab Results: Vital Signs - 8 hr 04/28/19 01:31 Temperature 98.4 F Pulse Rate 87 Respiratory Rate 16 Blood Pressure 130/69 O2 Sat by Pulse Oximetry 100 Laboratory Results - last 24 hr 04/28/19 01:23 POC Glucose 30 L D Orders Category Date Time Status Nursing- Obtain EKG ONCE Care 04/28/19 01:[address] HEAD W/O CONTRAST [CT] Stat Exams 04/28/19 01:36 Ordered cxr [CHEST-1 VIEW] [RAD] Stat Exams 04/28/19 01:37 Ordered CBC WITH ELECTRONIC DIFF [HEME] Stat Lab 04/28/19 01:38 Ordered COMPREHENSIVE METABOLIC PANEL [CHEM] Stat Lab 04/28/19 01:38 Ordered TROPONIN T Stat Lab 04/28/19 01:38 Ordered URINALYSIS W/POSS RFLX CULT [URINALYSIS] Stat Lab 04/28/19 01:34 Uncollected EKG [EKG] Stat Ther 04/28/19 01:34 Ordered Result Diagrams: 04/28/19 01:24 04/28/19 01:24 - CT/MRI 1 CT Study: Head Impression: Normal, See EMR Report (No Acute findings. Persistent mastoiditis Rt side.) - CONSULTS/PCP/HOSPITALIST Notification #1 *Consult/PCP/Hospitalist*: Dr Wade Time Discussed: 03:35 Consult Disposition: Will see in ED, Admit Departure - Departure Date of Disposition Decision: 04/28/19 Time of Disposition Decision: 03:35 DIAGNOSIS: Leukocytosis, Hypoglycemia Disposition: ADMITTED INPATIENT 09 Certified Medical Emergency: Emergent Condition: Fair - Critical Care Note This patient required my direct & personal management of CC.: No Attestation - Physician/ GABBI Attestation Patient care was provided by Advanced Practice Provider:: No The physician spent face to face time with patient:: Yes Advanced Practice Provider documentation review:: Supervising physician onsite and consulted in the evaluation and care of this patient. The physician did have a face to face encounter with the patient. This chart was documented by the indicated scribe, (Manuela Kasper, Filomena) and accurately reflects the services I performed and decisions made by me, Talon Velasquez MD, as attested by the provider's signature.
[2019-04-28 04:23] LABS: INR 0.99; PROTIME 13.2 Seconds (11.0-16.0)
[2019-04-28 04:24] LABS: PTT 29.9 Seconds (22.3-41.8)
--- NOTE | 2019-04-28 05:39 | Diag Imaging Result Doc PS360 ---
EXAM: CHEST-1 VIEW HISTORY: possible cva TECHNIQUE: Chest single view COMPARISON: 09/25/2018 FINDINGS: The lungs are well expanded. The heart is not enlarged. The vessels are not distended. There are no infiltrates. No effusion identified. Mild/moderate scoliosis. IMPRESSION: Negative exam. Electronically signed by Grady Richey 04/28/2019 5:37 AM
--- NOTE | 2019-04-28 05:41 | Diag Imaging Result Doc PS360 ---
EXAM: CT HEAD W/O CONTRAST HISTORY: possible stroke TECHNIQUE: CT head without contrast COMPARISON: 09/25/2018 FINDINGS: No parenchymal hemorrhage. No epidural or subdural hematoma. No subarachnoid hemorrhage. There are chronic microvascular ischemic changes. No mass identified on this noncontrasted exam. No hydrocephalus. No sinus opacification. Minimal fluid inferiorly in the right mastoid sinus similar to the prior study. IMPRESSION: 1.No hemorrhage 2.Chronic microvascular ischemic changes 3.Minimal fluid in the right mastoid sinus similar to the prior exam 4.A preliminary report was given at 2:49 AM This exam was performed using automated exposure control, adjustment of mA or kV according to patient size, and/or use of iterative reconstruction technique. Electronically signed by Grady Richey 04/28/2019 5:39 AM
[2019-04-28] MEDS ORDERED: TYLENOL PO PRN (07:18)
[2019-04-28] MEDS ORDERED: NS 1,000 ML IV SCH (07:18)
[2019-04-28] MEDS ORDERED: ZOFRAN IV PRN (07:18)
[2019-04-28] MEDS: HEPARIN SUBQ SCH ×2 (10:08→21:08)
[2019-04-28] MEDS: IMDUR PO SCH (10:08)
[2019-04-28] MEDS: CARDIZEM CD PO SCH (10:09)
[2019-04-28] MEDS: APRESOLINE PO SCH ×3 (10:09→21:08)
[2019-04-28] MEDS: MAXIPIME 1 GM in NS 50 ML IV SCH ×2 (10:20→22:51)
[2019-04-28] MEDS: ZYVOX PO SCH ×2 (10:20→21:08)
--- NOTE | 2019-04-28 10:29 | Diag Imaging Result Doc PS360 ---
EXAM: FOOT 2 VIEWS RIGHT HISTORY: osteomyelitis TECHNIQUE: Right foot, two views only. COMPARISON: 09/26/2018 FINDINGS: There is an external bandage about the foot. The bones appear osteopenic. No periosteal reaction. No bone erosions. IMPRESSION: No plain film evidence of osteomyelitis. An MRI is recommended if clinical suspicion persists. Electronically signed by Grady Richey 04/28/2019 10:26 AM
--- NOTE | 2019-04-28 10:31 | Diag Imaging Result Doc PS360 ---
EXAM: FOOT 2 VIEWS LEFT HISTORY: osteomyelitis TECHNIQUE: Left foot, two views. A complete series was not ordered. COMPARISON: None. FINDINGS: No periosteal reaction. No bone erosions. Soft tissue ulcer inferior to the calcaneus. IMPRESSION: No plain film evidence of osteomyelitis. An MRI is recommended if clinical suspicion persists. Electronically signed by Grady Richey 04/28/2019 10:28 AM
[2019-04-28] MEDS: HUMULIN R SUBQ SCH ×5 (11:00→21:48)
--- NOTE | 2019-04-28 11:45 | HISTORY AND PHYSICAL ---
PRIMARY CARE PROVIDER: Dr. Yossi Pablo. DATE AND TIME: 04/28/2019 at 0515. CHIEF COMPLAINT: Low blood sugar. HISTORY OF PRESENT ILLNESS: Mr. Garcia is a 64-year-old male who presented to the ER this evening after being found unresponsive by his at home. He was noted by EMS to have a fingerstick blood sugar of 35. He did arrive to the ER lethargic, disoriented. He was noted to have a pale, dry tongue. After obtaining an IV and administering IV D50, the patient immediately became more responsive. The patient was, according to the ER note, reporting some right-sided weakness and right-sided facial droop, though this has since resolved since resolved since he received D50. The patient reports that he has an ulcer on his right foot for which he has been receiving treatment for several months by Dr. Lewis. They have been placing a specialized boot on his right foot. This is a hard boot. The patient and his states that he sees Dr. Lewis approximately every 2 weeks and they change this out. She states they have to remove this with a cast cutter. He also does have a wound noted to his left heel as well. The patient states that he did have an episode of diarrhea earlier today. This does occasionally happen due to he does have problems with constipation, does take milk of magnesia. Though this has not been recurrent. He denies any headache, dizziness, The patient reports that he has had some visual disturbances and difficulty seeing but this has been ongoing for quite some time. This is not of new onset. He denies any chest pain, shortness of breath, cough. He denies any abdominal pain, or nausea, vomiting. He denies any dysuria or urinary frequency. He denies any pain or swelling in extremities, and the numbness he previously reported has resolved. He denies any fever, body aches, or chills. Upon evaluation in the ER, the patient was noted to have vital signs of temperature 98.4 degrees, heart rate 87, respirations 16, blood pressure 130/69 with an oxygen saturation of 100% on room air. The patient did have marked leukocytosis [place] [address]. He did have also an acute kidney injury with an elevated creatinine of 2.5 and a GFR of 32. Since receiving D50 IV in the ER, his fingerstick blood sugar has improved to 127. His plasma lactate was 1.6. The patient's head CT did not show any acute intracranial abnormalities, there was just some chronic microvascular ischemic changes, and chest x-ray did not show any acute abnormalities as well. At this time, it is uncertain what is the cause of the patient's leukocytosis. He was admitted back in September 2018 and was noted to have leukocytosis at that time as well, though was being treated for a right foot wound, which may be the same wound he is currently still being treated for. I did consult with Dr. Wade, the attending Hospitalist physician, about whether or not we should remove the patient's hard boot off his right foot to evaluate his foot wound. Dr. Wade recommended consulting Dr. Lewis and have him evaluate the patient first prior to removing this and let Dr. Lewis decide whether or not he would like to remove this hard boot. At this time, the patient will be admitted inpatient for further treatment and evaluation. REVIEW OF SYSTEMS: A 14 point review of systems was conducted with the patient and all were negative except for pertinent positives mentioned above in the HPI. PAST MEDICAL HISTORY: 1. Diabetes mellitus. 2. Hypertension. 3. Hyperlipidemia. 4. History of lung nodules which are being followed by Dr. Tucker. His most recent follow-up CT in February 2019 did show some interval improvement. I did recommend that the patient follow up with Dr. Tucker as he was previously recommended to get continued follow-up care for his lung nodules. I instructed the patient to follow up with Dr. Tucker and his , who was present at bedside. PAST SURGICAL HISTORY: Right foot surgery for debridement of right foot wound. SOCIAL HISTORY: The patient denies any tobacco, alcohol or illicit drug use. FAMILY HISTORY: Positive for diabetes mellitus and hypertension. ALLERGIES: Patient has no known allergies. HOME MEDICATIONS: 1. Cardizem-LA 300 mg p.o. daily. 2. Lasix 40 mg p.o. daily. 3. Glimepiride 4 mg p.o. daily. 4. Hydralazine 25 mg p.o. t.i.d. 5. Imdur 30 mg p.o. daily. 6. Cozaar 100 mg p.o. daily. 7. Glucophage 1000 mg p.o. b.i.d. 8. Potassium chloride 10 mEq p.o. daily 9. Pravastatin 40mg p.o. at bedtime. LABORATORY AND DIAGNOSTIC DATA: [place] [address], hemoglobin 10.8, hematocrit 33.4, platelet count is 258,000. PT 13.2, INR 0.99, PTT 29. Sodium 139, potassium 4.8, chloride 98, serum bicarb is 22, BUN 40, creatinine 2.5 with a GFR of 32. Glucose was initially 37, though after being given D50 IV, his most fingerstick blood sugar was 127. Calcium 10.2. Magnesium 19. Liver function tests are within normal limits. Troponin 0.01. Plasma lactate is 1.6. Urinalysis was positive for a glucose that was otherwise negative. His urinalysis is negative for protein, ketones, blood, nitrites, leukocytes, white blood cells or bacteria. This was deemed to be a clean catch. EKG showed sinus rhythm with frequent premature ventricular complexes at a rate of a 88 with a QTC of 479. Chest x-ray showed that the lungs were well expanded and the heart was not enlarged. The vessels are not distended. There were no infiltrates or effusions identified. CT of the head without contrast showed no hemorrhage. There were chronic microvascular ischemic changes. There is minimal fluid in the right mastoid cell and is similar to prior exam. PHYSICAL EXAMINATION: VITAL SIGNS: Temperature 98.1 degrees, heart rate 90, respirations 15, blood pressure 138//70, oxygen saturation is 100% on room air. GENERAL: Mr. Garcia is a pleasant 64-year-old male who is resting on the ER stretcher. He is in no acute distress. He was awake, alert and able to answer questions appropriately. HEENT: Head is atraumatic, normocephalic. Pupils are equal, round, react to light at 3 mm bilaterally and risk. Oral mucosa is most, oropharynx is clear. NECK: Supple. Trachea midline. There is no JVD. CARDIOVASCULAR: The patient has S1, S2 present. No murmurs, gallops were appreciated with a regular rate and rhythm. PULMONARY: Patient has symmetrical chest expansion bilaterally. Lung sounds are clear to auscultation in bilateral lung polk. ABDOMEN: Soft, nondistended, nontender. Bowel sounds are present in all 4 quadrants, were normoactive. EXTREMITIES: No cyanosis or edema noted. Pulse, motor and sensory is intact in all extremities. Radial pulses are 2+ bilaterally and pedal pulses in his left foot was 2+ bilaterally. His right pedal pulse was unable to be obtained due to his hard boot that is present. INTEGUMENTARY: The patient's skin is pink, warm and dry. The patient does have wound noted to plantar surface of his left heel, has approximately the size of the end of #2 pencil eraser. There was no drainage noted. There is no erythema or warmth or tenderness present either. As previously mentioned, the patient does have a hard boot which, according to the patient, is part of the dressing that Dr. Lewis has been using for care of a right foot wound. Other than this, there are no other wounds noted at this time, though due to his hard boot, we are not able to assess this at this time. We are awaiting Dr. Lewis's evaluation before removing this. NEUROLOGICAL: The patient is alert and oriented to person, place, time, and situation. He is able to move all extremities. At this time, he is denying any numbness or tingling. He has equal hand grasp bilaterally, equal muscle strength bilaterally. There is no arm drift noted. There is no facial droop noted either. At this time, there are no focal neurological deficits noted. ASSESSMENT AND PLAN: 1. Hypoglycemia. The patient did report that he took his oral diabetic medication yesterday though did not eat as well as he normally does. He was hypoglycemic with a fingerstick blood sugar that was reportedly 35 by EMS. He did receive D50 IV immediately upon his arrival to the ER and once given this, his mentation as well as his symptoms of numbness have all resolved. The patient is back at his baseline. He is alert and oriented to person, place, time, and situation. He has no focal neurological deficits noted at this time. We will continue his diabetic diet, though I placed him on sliding scale regular insulin to be patient- specific, only to be treated when his fingerstick blood sugar is above 200 until we know that his hypoglycemia has resolved. We will hold his oral diabetic medications this time also given that he has an acute kidney injury. 2. History of diabetes mellitus. We will continue treatment as mentioned above for #1. We are performing pattern fingerstick blood sugars. 3. Leukocytosis. This is of uncertain etiology at this time. The patient does not have a known source of infection, though does have a right foot wound/ulcer that he has been being treated for by Dr. Lewis over the past several months. Though this wound does have a specialized dressing that, according to the patient, does have a hard boot placed over it that gets replaced every [address] Lewis. They do report that he has to remove this specialized boot with a cast cutter. After discussing this with the attending Hospitalist physician, Dr. Wade, he recommended that we consult Dr. Lewis and await his evaluation and recommendations before removing this boot. We have also placed a consult with Dr. Smith with Infectious Disease as well for further evaluation of his leukocytosis. We have ordered blood cultures as well. We will continue to follow closely. 4. Foot wounds. We will continue with treatment as mentioned above for number #3. We have placed consults with Dr. Lewis with Surgery and Dr. Smith with Infectious Disease. We will continue to follow along and await their evaluation and further recommendations for management. 5. Acute kidney injury. This could be related to some mild fluid volume depletion as well as nephrotoxic medications. The patient does report that he likes to sit outside and has been out in the heat the past 2 days as well. We will continue with gentle fluid hydration with normal saline at 100 mL/hour. We will avoid nephrotoxic medications and only use those medications as necessary. We have held a few of his regularly prescribed medicines such as his Lasix, glimepiride, metformin and losartan secondary to his acute kidney injury. 6. Hypertension. We will continue his Cardizem and hydralazine. 7. Deep venous thrombosis prophylaxis provided with heparin 5000 subcutaneous q.12 hours. The patient has been placed on the medical floor with telemetry. He will have vital signs q.4 hours, do strict intake and output. He will be on a diabetic. We will do pattern fingerstick blood sugars. We will repeat a series of a CK. We are following troponin given that the patient does have a slightly troponin at 0.018, though he is denying any chest pain at this. This may be likely secondary to his acute kidney injury. Further orders and recommendations pending hospital course, diagnostic studies and physician evaluations. Dictated by SHANI Laboy for Sudhir Wade MD I have performed a face to face diagnostic evaluation. Labs/ Imaging - reviewed. Exam- Chest- clear, CV- regular, Neuro- alert A/P- Hypoglycemia- Admit, monitor blood glucose close, hold hypoglycemic agents, supportive care. Dr. Wade cc: Sudhir Wade MD [facility]
--- NOTE | 2019-04-28 11:57 | INFECTIOUS DISEASE CONSULT REP ---
DATE: 04/28/2019 CONCLUSION: I have been asked to see the patient regarding leukocytosis, most likely secondary from foot infection. The patient does have a lymphoma which may be contributing to the leukocytosis. I was able to see the patient's left foot but unfortunately he has got a cast on the right foot. RECOMMENDATIONS: From the plantar ulcer on the left foot, I have taken a culture and sent it to the microbiology lab. For the patient's right leg that is in a cast, I have requested that the nurse call me back to see the patient when the cast is taken off. When it is taken off, I plan to get a culture from the right foot. Blood cultures have been drawn. PRESENT ILLNESS: The patient tells me that he has had problems with infection in both feet. He has been put in the hospital for this and his said this is the 3rd time he has been put in the hospital for foot infection and each time his white blood cell count is high. The patient did have a culture from his right foot in September of this year and it grew Citrobacter and it was in vitro susceptible to cefazolin, Levaquin, Septra and Zosyn. The patient has previously had blood cultures in September 2018 and also urine culture and all those cultures were negative. CBC: White count is 37,080, hemoglobin 10.8, platelet count 258,000. Creatinine is 2.5, GFR is 32. Liver function studies were normal. Urinalysis did not show white blood cells or bacteria. Blood cultures are pending. PAST MEDICAL HISTORY/REVIEW OF SYSTEMS: Eyes/Ears: Patient can hear and see okay. Neck: No stiffness. Respiratory: No cough or shortness of breath. Cardiac: No chest pain or palpitations. GI: No nausea, vomiting, or diarrhea. : No dysuria or flank pain. Neurologic: No seizures, no loss of motor or sensory function. Integument: No rashes PREVIOUS HOSPITALIZATIONS AND OPERATIONS: As I mentioned above, this is the third time the patient has been in the hospital with leukocytosis and infection of his feet. The patient has also been in the hospital for having a stroke and also once for having a urinary tract infection. MEDICAL DISEASES: Positive for diabetes mellitus, hypertension, stroke, and lymphoma, hyperlipidemia. INFECTIOUS DISEASE HISTORY: Positive for urinary tract infection and bilateral feet infection. FAMILY HISTORY: Positive for diabetes mellitus, hypertension, myocardial infarction, and cancer. SOCIAL HISTORY: [place] He is . He does not have any pets at home. He does not smoke cigarettes, drink alcoholic beverages or abuse drugs. His chart lists no known drug allergies. HOME MEDICATIONS: Diltiazem, Lasix, glimepiride, Apresoline, Isordil, Cozaar, Glucophage, and Pravachol. PHYSICAL EXAMINATION: Vital Signs: Temperature is 98.1 degrees, pulse 91, respirations 15, blood pressure 138/70. Patient is 5 feet 6 inches tall, weighs 151 pounds. General: This is an ill- appearing elderly male. He is in no acute distress. HEENT: He can hear my spoken words and see near objects. He is edentulous. He does not have any white coating on his tongue. Neck: No meningismus. Lungs: Clear to auscultation. Cardiovascular: Heart rate is regular. Abdomen: Soft, nontender. Extremities: The patient's right leg is in a plaster cast. The patient's left foot has an approximately 1 cm plantar ulcer on the heel. I obtained my culture from his left foot from that ulcer. Neurologic: Patient is alert, can move his extremities. There is no tremor. His memory as regarding his medical history seemed to be intact. There is no tremor. Integument: No rash noted. Thank you for the consult. cc: Bhavik Smith MD
--- NOTE | 2019-04-28 14:29 | PROGRESS NOTE ---
DATE: 04/28/2019 SUBJECTIVE: This morning Mr. Garcia looks a whole lot better. He is more oriented and more conversational. and the son were at the bedside at the time of the encounter. OBJECTIVE: Vital: Blood pressure is 138/70, pulse of 90, respiration is 15 and temperature is 98.1 degrees. General exam: Mr. Garcia is a 64-year-old male. He is in bed, no distress. HEENT: Mucosa is pink and moist. Anicteric. Acyanotic. Neck: Supple. Chest: Clear to auscultation. Cardiovascular: Regular rate and rhythm. GI: Abdomen is soft. Extremities: No pedal edema. There is an old ulceration over the right foot bottom with good granulation tissue. 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 He has no focal neurological deficit. IMAGING STUDIES: Have all been reviewed. LABORATORY DATA: WBC is 37.08, hemoglobin is 10.8, platelet count of 258. Patient has 63% of lymphocytes. Chemistry is also reviewed. Creatinine is 2.5. ASSESSMENT: 1. Symptomatic hypoglycemia on presentation, improved. The patient is on oral hypoglycemic agent including glimepiride, which is sulfonylurea. We will have to withhold these medications and observe patient for 24 hours, make sure he has adequate glycemic control before he is discharged. Of note Mr. Garcia also has acute on chronic renal failure, which will make the sulfonylurea life span more extended than usual. 2. Leukocytosis with predominant lymphocytosis. This seems to be chronic. I think there is concern for possible chronic lymphocytic leukemia. A flow cytometry has been ordered. 3. History of diabetes mellitus. 4. Right foot bottom wound. It looks pretty clean; it does not look infected. The patient had a previous culture which showed Citrobacter koseri. He has been started on intravenous antibiotics and Infectious Disease has been consulted. 5. Acute on chronic renal failure. Patient is currently on intravenous fluids. We are going to continue monitoring the renal functions and avoid any nephrotoxic drugs. cc: Darrell Loomis MD
[2019-04-28 14:44] LABS: FLOW CYTOMETERY SOURCE WHOLE BLOOD; LEUKEMIA LYMPHOMA BY FLOW REFERRED FOR TESTING
--- NOTE | 2019-04-28 15:54 | INFECTIOUS DISEASE CONSULT REP ---
DATE: 04/28/2019 ADDENDUM REPORT: The cast has been removed from the patient's right foot. He has a plantar ulcer at the heel. This one is larger than the one on the left side and it has some drainage that has a foul odor. A culture has been obtained from this ulcer as well. cc: Bhavik Smith MD
[2019-04-28] MEDS: D5 1/2 NS 1,000 ML IV SCH (16:45)
[2019-04-28] MEDS: PRAVACHOL PO SCH (21:08)
[2019-04-29] MEDS: D5 1/2 NS 1,000 ML IV SCH (05:51)
[2019-04-29] MEDS: HUMULIN R SUBQ SCH (06:38)
[2019-04-29] MEDS: MAXIPIME 1 GM in NS 50 ML IV SCH ×2 (09:41→22:06)
[2019-04-29] MEDS: ZYVOX PO SCH ×2 (09:41→20:46)
[2019-04-29] MEDS: APRESOLINE PO SCH ×3 (09:41→20:46)
[2019-04-29] MEDS: IMDUR PO SCH (09:41)
[2019-04-29] MEDS: HEPARIN SUBQ SCH ×2 (09:41→20:46)
[2019-04-29] MEDS: CARDIZEM CD PO SCH (09:41)
--- NOTE | 2019-04-29 13:30 | GENERAL SURGERY CONSULTATION ---
DATE: 04/29/2019 HISTORY OF PRESENT ILLNESS: I have been asked to see Mr. Garcia regarding his foot wound. 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 He was admitted yesterday with hypoglycemia, weakness, and facial drooping. Because of his leukocytosis I was asked to see him about his foot wound and the concern for infection. His other medical problems include diabetes, hypertension, and hyperlipidemia. He is followed by Dr. Tucker as well for uncertain reasons. FAMILY HISTORY: Positive for diabetes. SOCIAL HISTORY: Denies tobacco or alcohol use. HOME MEDICATIONS: Home medications are listed. ALLERGIES: He has no known drug allergies. REVIEW OF SYSTEMS: As noted above. PHYSICAL EXAMINATION: Vital Signs: On physical exam he is afebrile. Heart rate is 90 and blood pressure 137/76. Heart: Regular rate and rhythm. Abdomen: Soft. Extremities: Femoral pulses are present. The small neuropathic ulcers on both feet are almost completely healed. There is no fluctuance no erythema, and no drainage of significance. ASSESSMENT AND PLAN: Healing neuropathic ulcers of both heels. I think that there may be another source for his leukocytosis. Does he have chronic lymphocytic leukemia? We will leave his contact cast off while hospitalized and continue with local wound care. cc: Randal Lewis MD
--- NOTE | 2019-04-29 13:37 | PROGRESS NOTE ---
DATE: 04/29/2019 SUBJECTIVE: This morning Mr. Garcia referred to be doing okay. Denies any new complaints. Still has episodes of low glucose readings. OBJECTIVE: Vital signs: Blood pressure is 112/67, pulse of 92, respiration is 18, temperature 98.4 degrees. Patient is saturating 99% on room air. General: Mr. Garcia is a 64-year-old, elderly, gentleman. He is in bed, no distress. HEENT: Mucosa is pink and moist. Anicteric. Acyanotic. Neck: Supple. Chest: Clear to auscultation. No crepitations. No rhonchi. Cardiovascular: Regular rate and rhythm. There were no murmurs, no rubs, no gallops. GI: Abdomen was soft, nontender. Bowel sounds were present. Extremities: No pedal edema. There is some old ulceration over the right foot bottom. 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 He, however, seems to have some underlying cognitive decline. LABORATORY DATA: Glucose this morning was 93. It went down to about 31 at about 10:37. ASSESSMENT: 1. Symptomatic hypoglycemia on presentation, improved. However, the patient continues to have intermittent low glucose reading. He was on glimepiride, which is a long-acting sulfonylurea so we are going to continue observing the patient until we have a very stabilized glucose reading. 2. Leukocytosis with predominant lymphocytosis concerning for CLL. We waiting on the flow cytometry. 3. Right foot bottom wound infection with culture showing gram-negative winter. We waiting on the ID and sensitivity. 4. Acute on chronic renal failure. The patient seems to be now well hydrated. We are going to repeat his renal function for tomorrow morning. So, in general, I think Mr. Garcia is doing a lot better. We are going to continue withholding the oral hypoglycemic agents. He is on IV hydration and antimicrobials for the foot infection. Hopefully, within the next 24 hours, his glucose is persistently normalized and he will be discharged tomorrow. cc: Darrell Loomis MD
[2019-04-29] MEDS: PRAVACHOL PO SCH (20:46)
[2019-04-30] MEDS: D5 1/2 NS 1,000 ML IV SCH ×2 (05:53→06:46)
[2019-04-30 08:13] LABS: BASO# 0.17 X1000 (0.0-0.2); BASO% 0.4 % (0.0-0.8); EOS# 0.27 X1000 (0.0-0.7); EOS% 0.6 % (0.0-10.0); HEMATOCRIT 29.4 % (42.0-52.0); HEMOGLOBIN 9.4 g/dL (14.0-18.0); MCH 28.2 PG (27-31); MCV 88.3 FL (81-99); MPV 10.9 FL (7.4-10.4); PLT 253 X1000 (130-400); RBC 3.33 XMIL (4.7-6.1); RDW 12.8 % (11.5-14.5); WBC 42.29 X1000 (4.8-10.8)
[2019-04-30 08:19] LABS: AGAP 10; ALBUMIN 3.8 g/dL (3.5-5.0); BUN 19 mg/dL (8-22); CALCIUM 9.2 mg/dL (8.8-10.2); CHLORIDE 104 mmol/L (98-107); COSMO 278; CREATININE 1.1 mg/dL (0.7-1.2); ESTIMATED GFR > 60; GLUCOSE 132 mg/dL (70-104); PHOSPHORUS 2.6 mg/dL (2.7-4.5); POTASSIUM 4.6 mmol/L (3.5-5.1); SODIUM 137 mmol/L (136-145); TCO2 23 mmol/L (25-35)
[2019-04-30 09:16] LABS: BASO 1 % (0-1); EOS 1 % (1-10); LYMPHS 83 % (21-51); MONO 6 % (1-9); SEGS 9 % (42-75)
[2019-04-30 09:17] LABS: ANISOCYTOSIS 1+; MICROCYTOSIS 1+; TARGET CELLS OCCASIONAL
[2019-04-30] MEDS: IMDUR PO SCH (10:14)
[2019-04-30] MEDS: HEPARIN SUBQ SCH ×2 (10:14→20:57)
[2019-04-30] MEDS: CARDIZEM CD PO SCH (10:14)
[2019-04-30] MEDS: APRESOLINE PO SCH ×3 (10:14→20:57)
--- NOTE | 2019-04-30 10:23 | INFECTIOUS DISEASE PROGRESS NO ---
DATE: 04/30/2019 PRESENT ILLNESS: The patient has infection of both heels. There is a possibility that he could have an underlying osteomyelitis. The patient has a leukocytosis, but I doubt it is from the infection coming from the patient's heel. MEDICATIONS: The patient is on a combination of Zyvox and cefepime. PHYSICAL EXAMINATION: Vital Signs: Temperature is 98 degrees, pulse 92, respirations 18, blood pressure 130/64. General: This is a somewhat ill-appearing elderly male. He is in no acute distress. Head, eyes, ears, nose, and throat: He can hear my spoken words and see near objects. He does not have any white coating on his tongue. Neck: No pain with movement of his neck. Lungs: Clear to auscultation. Cardiovascular: Heart rate is regular. Abdomen: Soft and nontender. Extremities: The patient's right heel has a larger ulcer with an odor to it than the left heel. The left heel ulcer is smaller, and there is no odor from it. There is no drainage coming from the left heel, but there is purulent drainage coming from the right heel. Neurologic: Patient is alert. He can move his extremities. There is no tremor. LAB AND RADIOLOGY: CBC-WBC 42.29, hgb 9.4, platelets 253K. Creatinine-1.1. GFR- >60. L foot culture grew enterobacter. R foot culture grew a gram negative winter which has not been identified yet. No new radiographic study. ASSESSMENT AND PLAN: The patient has infection of both heels. The plan is to switch the patient to Levaquin. Some of the side effects of the antibiotic, including rash, diarrhea, seizures, and tendon ruptures have been explained to the patient who agrees with treatment. Tomorrow, I plan on getting an MRI of both feet to look for osteomyelitis. Also tomorrow, hopefully, I will have the identity of the culture from the patient's left heel, and hopefully it will be susceptible to Levaquin, and then the patient most likely will be able to go home. COMORBIDITIES: The patient is a diabetic. He has a lymphoma which most likely is causing the patient's leukocytosis, but as mentioned above, I do not think it is coming from infection of his feet. cc: MD GAGANDEEP Braswell
[2019-04-30] MEDS: LEVAQUIN PO SCH (10:27)
--- NOTE | 2019-04-30 11:47 | GENERAL SURGERY PROGRESS NOTE ---
DATE: 04/30/2019 Mr. Garcia is afebrile. His wound was inspected yesterday, and it looks much better than previous. His white count has gone up with the profound lymphocytosis, so I do not think his wound is the source of his leukocytosis; rather, it might be a hematologic process. cc: Randal Lewis MD
--- NOTE | 2019-04-30 13:35 | PROGRESS NOTE ---
DATE: 04/30/2019 SUBJECTIVE: This morning Mr. Garcia refers to be doing okay and does not have any more neuroglycopenic symptoms. OBJECTIVE: Vital signs: Blood pressure is 122/69, pulse of 87, respiration is 18, temperature is 97.6 degrees. General: Mr. Garcia is a 64-year-old gentleman. He is in bed. No distress. Mucosa is pink and moist. Anicteric. Acyanotic. Neck: Supple. Chest: Clear to auscultation. No crepitations. No rhonchi. Cardiovascular: Regular rate and rhythm. GI/Abdomen: Soft, nontender. Bowel sounds present. Extremities: No pedal edema. There are some ulcerations over both feet bottom. The right one looks a little bit more deeper, but there is good granulation tissue below. 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 LABORATORY DATA: Has been reviewed. Patient has a WBC of 42.29, predominantly lymphocytic. Glucose is 132 now. ASSESSMENT: 1. Symptomatic hypoglycemia on presentation, improved. 2. Leukocytosis with predominant lymphocytosis, concerning for CLL. The patient has a history of lymphoma. We are still pending total blood flow cytometry. 3. Bilateral feet bottom wound infection. The patient is currently on IV antimicrobial therapy. There is a plan to switch him to Levaquin once the 2nd culture is none. 4. Acute kidney injury. Creatinine has normalized. PLAN: In general, I think Mr. Garcia is doing a whole lot better from the medical standpoint. We think he could be discharged today on oral Levaquin. ID, I have spoken with Dr. Smith. He plans to do an MRI of the lower extremity to rule out osteomyelitis before patient gets discharged, hopefully this is done first thing tomorrow morning and then based on the results, we will take further decisions. cc: Darrell Loomis MD
[2019-04-30] MEDS: PRAVACHOL PO SCH (20:57)
[2019-04-30] MEDS: HUMULIN R SUBQ SCH (22:37)
[2019-05-01] MEDS: HUMULIN R SUBQ SCH ×2 (06:27→12:30)
[2019-05-01 07:11] LABS: BASO# 0.11 X1000 (0.0-0.2); BASO% 0.3 % (0.0-0.8); EOS# 0.21 X1000 (0.0-0.7); EOS% 0.6 % (0.0-10.0); HEMATOCRIT 28.5 % (42.0-52.0); HEMOGLOBIN 8.9 g/dL (14.0-18.0); MCHC 31.2 g/dL (33-37); MCV 89.6 FL (81-99); MPV 10.7 FL (7.4-10.4); PLT 242 X1000 (130-400); RBC 3.18 XMIL (4.7-6.1); RDW 12.9 % (11.5-14.5); WBC 37.24 X1000 (4.8-10.8)
[2019-05-01 07:18] LABS: AGAP 11; BUN 17 mg/dL (8-22); CALCIUM 9.4 mg/dL (8.8-10.2); CHLORIDE 105 mmol/L (98-107); COSMO 282; CREATININE 1.3 mg/dL (0.7-1.2); ESTIMATED GFR > 60; GLUCOSE 115 mg/dL (70-104); POTASSIUM 4.7 mmol/L (3.5-5.1); SODIUM 140 mmol/L (136-145); TCO2 24 mmol/L (25-35)
[2019-05-01 07:27] LABS: LYMPHS 72 % (21-51); MONO 2 % (1-9); SEGS 10 % (42-75)
[2019-05-01 11:16] VITALS: BP 132/68
[2019-05-01] MEDS: IMDUR PO SCH (12:30)
[2019-05-01] MEDS: HEPARIN SUBQ SCH (12:30)
[2019-05-01] MEDS: APRESOLINE PO SCH (12:30)
[2019-05-01] MEDS: LEVAQUIN PO SCH (12:30)
[2019-05-01] MEDS: CARDIZEM CD PO SCH (12:30)
--- NOTE | 2019-05-01 12:31 | Diag Imaging Result Doc PS360 ---
MRI LOW EXTREMTY W/CON-RIGHT - 05/01/2019 INDICATION: osteomyelitis of heel TECHNIQUE: MRI right ankle without and with intravenous contrast COMPARISON: X-rays from 04/28/2019 FINDINGS: There is widespread multifocal bone marrow edema and cystic change at the joints of most of the bones of the ankle including the tibial plafond, anterior process of the talus, subtalar joints, anterior process of the calcaneus, navicular, cuboid, and cuneiforms. These also demonstrate contrast enhancement. There is a small ankle joint effusion. The Achilles tendon is normal in signal. The plantar fascia is normal in signal. There is some degenerative spurring of the calcaneus at the insertion of the Achilles and plantar fascia. 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 No evidence for osteomyelitis. Electronically signed by Jagjit Nava 05/01/2019 12:29 PM
--- NOTE | 2019-05-01 12:33 | Diag Imaging Result Doc PS360 ---
MRI LOW EXTREMTY W/CON-LEFT - 05/01/2019 INDICATION: osteomyelitis of heel TECHNIQUE: MRI left ankle without and with intravenous contrast COMPARISON: None FINDINGS: There is widespread bone marrow edema and cystic change adjacent to the joints of the ankle and foot. These mainly involve the talus and subtalar joints, anterior process of the calcaneus, cuboid, cuneiforms, and navicular. These areas demonstrate contrast enhancement. The Achilles tendon and plantar fascia are intact. There is degenerative calcaneal spurring at the insertions of the Achilles and plantar fascia. No significant joint effusion. IMPRESSION: Widespread degenerative changes of the ankle compatible with neuropathic joint disease. No evidence of osteomyelitis. Electronically signed by Jagjit Nava 05/01/2019 12:31 PM
--- NOTE | 2019-05-01 14:15 | INFECTIOUS DISEASE PROGRESS NO ---
DATE: 05/01/2019 SUBJECTIVE: The patient's MRIs on both feet showed no osteomyelitis. Cultures from both of the patient's plantar ulcers are growing Enterobacter. The patient is being discharged today on Levaquin 500 mg daily for 14 days. The patient will have follow up with the [facility] with the physician he is seeing. cc: Bhavik Smith MD
--- NOTE | 2019-05-01 15:11 | DISCHARGE SUMMARY ---
ADMISSION DATE: 04/28/2019 DISCHARGE DATE: 05/01/2019 DISPOSITION: Home. FOLLOW-UP: 1. Dr. Tucker. 2. Dr. Lewis. 3. Dr. Smith. 4. Dr. Yossi Pablo. CONSULTATIONS DURING THIS ADMISSION: 1. ID was consulted. Patient was seen by Dr. Smith. 2. Surgery was consulted. Patient was seen by Dr. Lewis. 3. Hematology/Oncology was consulted. The patient will be seen by Dr. Tucker on outpatient basis. INVASIVE PROCEDURES DONE DURING THIS ADMISSION: None. IMAGING STUDIES OF SIGNIFICANCE: 1. CT scan of the head showed no acute pathology. 2. Chest x-ray was negative. 3. X-rays of both lower extremities were negative. 4. MRI showed widespread degenerative changes of the ankle compatible with neuropathic joint disease. No evidence of osteomyelitis. The same goes for the right. ADMISSION DIAGNOSES: 1. Hypoglycemia. 2. Diabetes mellitus. 3. Leukocytosis. 4. Foot wound infection. DIAGNOSES AT TIME OF DISCHARGE: 1. Symptomatic hypoglycemia on presentation, improved. 2. Leukocytosis with predominantly lymphocytosis concerning for CLL. Blood flow cytometry is still pending. Patient will follow up with Dr. Tucker. 3. Bilateral foot bottom wound infection with culture positive for Enterobacter cloacae complex. The patient will be on Levaquin and follow up with ID. 4. Acute on chronic kidney injury. Creatinine improved. 5. Diabetes mellitus. The patient has been started back on only metformin. Glimepiride has been withheld because of recent hypoglycemic episode. 6. Neuropathic joint of the lower extremity. DISCHARGE MEDICATIONS: 1. Metformin 1000 p.o. b.i.d. 2. Imdur 30 mg p.o. daily. 3. Pravastatin 40 mg p.o. at bedtime. 4. Diltiazem 300 p.o. daily. 5. Hydralazine 25 mg 3 times per day. 6. Levaquin 500 p.o. daily. Medications that have been withheld: Losartan, furosemide, glimepiride. Patient has been advised to follow up with his primary care doctor before resuming any of these medications. PRESENTING COMPLAINT: Low blood sugar. HISTORY OF PRESENT COMPLAINT: Mr. Garcia is a 64-year-old gentleman with a history of diabetes mellitus. Was brought into the emergency department because he was found unresponsive by the . EMS reports having a fingerstick sugar of 35. The patient was lethargic and disoriented at the time of the arrival. He was treated with dextrose, and he immediately became more responsive. There was concern of right side weakness which we think it was all related to the hypoglycemia. A CT scan of the brain was done which was unremarkable. Mr. Garcia was admitted for neuroglycopenic symptomatology and also wound infection. HOSPITAL COURSE: Mr. Garcia was admitted to the medical floor, was started on IV fluids which had dextrose. Glimepiride was withheld. He also looked very volume depleted with acute on chronic renal failure, so his ARB as well as the diuretics were all withheld, and he was fluid resuscitated. During the hospital course, he continued to improve. His mentation resolved. There was no more neurological deficit. His wound cultures from the feet bottoms came back positive for Enterobacter cloacae complex, and IV antimicrobials were switched to p.o. Levaquin. The patient was evaluated by Surgery as well as Infectious Disease. During the hospital course, Mr. Garcia was also noted to have leukocytosis that was predominantly lymphocytic, so flow cytometry was done. He has a remote history of lymphoma. So he will follow up with Dr. Tucker. This morning Mr. Garcia refers to be doing a whole lot better. His vitals are stable. Blood pressure is 132/68, pulse of 83, respirations 16, temperature 98.7 degrees. He is in stable condition for discharge. All the discharge instructions have been discussed with him, and we have gone into detail of the medications that have been withheld and the fact that he needs to follow up with his primary care doctor before he resumes any one of these. Time spent for discharge is 35 minutes. cc: MD Yossi Lisa MD Leroy F. Harris, MD Robert C. Walker, MD Raphael K. Quansah, MD
== END 2019-05-01 15:33 | disposition home health service (06) | DRG 638 ==
LOC: ED 01:18 → SUATTDRO 06:37 → 1N 06:37
PROVIDERS: ATTEND Internal Medicine